=== PATIENT | female | born 1975 | race Two or more races ===

== ENCOUNTER 2022-12-09 13:44 | Outpatient (REF) | payer OTHER, SELFPAY ==
[2022-12-09 15:52] LABS: Erythrocyte Sedimentation Rate 17 MM/HR (0-20)
[2022-12-11 05:39] LABS: Lyme Abs Screen <0.90 index
[2022-12-12 08:53] LABS: Anti Nuclear Antibody Screen NEGATIVE (NEGATIVE)
[2022-12-13 14:59] LABS: DNAds, Crithidia Antibody Negative (Negative)
== END 2022-12-09 13:45 | disposition home or self-care (01) ==
LOC: HO.LAB 13:44
PROVIDERS: Visit Provider Psychiatry & Neurology Neurology
DX: R56.9 Unspecified convulsions (principal)
CPT/HCPCS: 36415; 85652; 86038; 86039; 86255; 86617; 86618

== ENCOUNTER 2023-01-07 10:33 | Outpatient (REF) | payer OTHER, SELFPAY ==
[2023-01-09 03:18] LABS: Lutenizing Hormone 2.8 mIU/mL; Prolactin 23.5 ng/mL
== END 2023-01-07 10:34 | disposition home or self-care (01) ==
LOC: HO.LAB 10:33
PROVIDERS: PCP Family Medicine; Visit Provider Psychiatry & Neurology Neurology
DX: D35.2 Benign neoplasm of pituitary gland (principal)
CPT/HCPCS: 36415; 83002; 84146; 84307

== ENCOUNTER 2024-05-05 15:21 | Outpatient (REF) | payer OTHER, SELFPAY ==
[2024-05-06 22:48] LABS: Prolactin 23.6 ng/mL
== END 2024-05-05 15:22 | disposition home or self-care (01) ==
LOC: HO.LAB 15:21
PROVIDERS: PCP Family Medicine; Visit Provider Psychiatry & Neurology Neurology
DX: D35.2 Benign neoplasm of pituitary gland (principal)
CPT/HCPCS: 36415; 84146

== ENCOUNTER 2025-05-29 15:29 | Outpatient (AMB) | payer OTHER, SELFPAY ==
--- NOTE | 2025-05-29 15:46 | MHC.OFFVIS ---
Intake Visit Reasons: 6 month f/u Allergies No Known Allergies Allergy (Verified 05/29/25 15:50) Medication List - Last Reconciled 05/29/25 by Radha Flores CNP buspirone 7.5 mg PO BID cholecalciferol (vitamin D3) (Vitamin D3) 50 mcg PO DAILY docusate sodium 100 mg PO BID ferrous sulfate 324 mg PO DAILY levetiracetam 500 mg PO BID oxcarbazepine 300 mg PO BID rosuvastatin 10 mg PO BEDTIME simethicone 80 mg PO Q6H PRN HPI Comments Details: 49-year-old woman with pitutary macroadenoma and epilepsy (generalized shaking, passing out, tongue bite). She was doing okay. No further episodes or spells. No medication side effects. No significant headaches. She was still working in [employer]. Stress was okay. Sleep was okay. [facility] Medical History (Updated 05/29/25 @ 15:49 by Radha Flores CNP) Epilepsy Seizure disorder Migraine Review of Systems Const Denies chills, Denies daytime sleepiness, Denies difficulty sleeping, Denies fatigue, Denies fever(s), Denies frequent falls, Denies headache(s), Denies increased appetite, Denies poor appetite, Denies snoring, Denies weakness, Denies weight gain and Denies weight loss Eyes Denies loss of vision ENT Denies vertigo, Denies dizziness and Denies headache(s) Card Denies chest pain at rest, Denies chest pain with activity, Denies syncope, Denies leg edema and Denies palpitations Resp Denies snoring GI Denies constipation, Denies heartburn, Denies diarrhea and Denies nausea Denies urinary frequency, Denies urinary incontinence and Denies urinary urgency Musc Denies abnormal gait, Denies numbness and Denies tingling Skin/Breast Denies dry skin and Denies rash Neuro Denies abnormal gait, Denies vertigo, Denies dizziness, Denies syncope, Denies frequent falls, Denies headache(s), Denies lack of coordination, Denies loss of vision, Denies memory loss, Denies numbness, Denies restless legs, Denies seizure-like activity, Denies tingling, Denies paresthesias, Denies tremor(s) and Denies weakness Psych Denies anxiety, Denies depression, Denies auditory hallucinations, Denies memory loss, Denies visual hallucinations and Denies suicidal ideation Endo Denies fatigue and Denies palpitations Physical Exam Const Other: General Appearance:? normal, in no acute distress. Skin:? no rashes, no significant birthmarks. Heart:? S1, S2 normal, no murmurs. Lungs:? clear anteriorly and posteriorly. Extremities:? no edema. Psych:? alert, oriented, cognitive function intact, cooperative with exam. Neuro Other: Mental Status:?Normal attention, orientation, memory and affect.? Cranial Nerves:?Pupils are equal, round and reactive to light. External occular muscles are intact. Visual ignacio are full. Face is symmetrical. Facial sensations are normal. Tongue is midline. Palate elevates symmetrically. Shoulder shrugging is normal. Hearing to bedside conversation is normal. Sensory Exam:?....? Coordination:?No ataxia,?no titubation.? Gait Exam: Within normal limits. Extrapyramidal System:?No tremor, rigidity with normal facial expressions.? Pronator Drift:?Not present.? Involuntary Movements:?No tremors seen.? Speech:?Normal.? Results Reviewed Results Reviewed: Laboratory Tests 05/05/24 15:45 Prolactin 23.6 EEG at [facility] in 2022: left carl sharp theta MRI brain WWO at [place] in 2022: 1.[address] brain WO at [facility] in Nov 2022: WNL EKG at [facility] in Nov 2022: NSR Assessment & Plan Assessment & Plan (1) Epilepsy: Code(s): G40.909 - Epilepsy, unspecified, not intractable, without status epilepticus Category: Medical Qualifiers: Epilepsy type: unspecified Intractability: not intractable Status epilepticus: without status epilepticus Qualified Code(s): G40.909 - Epilepsy, unspecified, not intractable, without status epilepticus Plan: Continue oxcarbazepine 300mg 1 tablet twice a day. Continue levetiracetam 500mg 1 tablet twice a day. (2) Migraine: Code(s): G43.909 - Migraine, unspecified, not intractable, without status migrainosus Category: Medical Qualifiers: Migraine type: unspecified Status migrainosus presence: without status migrainosus Intractability: not intractable Qualified Code(s): G43.909 - Migraine, unspecified, not intractable, without status migrainosus (3) Pituitary macroadenoma: Code(s): D35.2 - Benign neoplasm of pituitary gland Category: Medical Plan . Coding Level of Care Code Est Pt Level 4 (22371) Diagnoses Nonintractable epilepsy without status epilepticus, unspecified epilepsy type G40.909 Epilepsy type: unspecified Intractability: not intractable Status epilepticus: without status epilepticus Migraine without status migrainosus, not intractable, unspecified migraine type G43.909 Migraine type: unspecified Status migrainosus presence: without status migrainosus Intractability: not intractable Pituitary macroadenoma D35.2
--- OUTSIDE RECORDS SUMMARY | 2025-05-29 15:59 | XMS_ITS | Patient Health Record ---
Author Organization [facility] Address [address] [place] [address] Care Team Providers Care Vice President Quality Assurance Name Role Phone Paniagua Leobardojosh Primary Care Provider Unavailabl e Allergies No Known Allergies Reason For Referral No Information Medications Medication SIG (Take, Route, Frequency, Duration) Notes Start Date End Date Status Excedrin Migraine 250-250-65 MG 2 tablets Orally Once a day prn Active Diclofenac Sodium 1 % apply 1 gm to the right heel Externally Twice a day; Duration: 30 days 02/20/2022 Active Plan Of Treatment Pending Test Test Name Order Date X ray : Foot, right 3v 02/20/2022 Insurance Providers Payer Name Payer Address Payer Phone Subscriber Number Group Number Insured Name Patient Relationship to Insured Coverage Start Date Coverage End Date [facility] [address] [place] [phone] [id number] Deepti Conley Self - patient is the insured Medical (General) History Medical History History ICD Code 12/18/2020 + COVID 19 virus infection obesity (BMI 30.0-34.9) PSVT (paroxysmal supraventricular tachyc ardia) mild mitral regurgitation- echo 2000 amblyopia of left eye migraine headache iron deficiency anemia Surgical History Surgery Date(Month/Year) appendectomy 1991 tubal ligation Hospitalization History Reason Date(Month/Year) vaginal delivery (boy) 1995 vaginal delivery (boy) 1994 vaginal delivery (boy) 1991
--- OUTSIDE RECORDS SUMMARY | 2025-05-29 15:59 | XMS_ITS | Clinical Summary ---
Author Organization [address] Address [address] [place], [place] Phone Care Team Providers Care Specialties Operator Name Role Phone Maranda Reina MD Primary Care Pr ovider Allergies No known active allergies Medications levETIRAcetam (KEPPRA) 500 mg tablet Take 1 Tablet by mouth 2 times daily. Active OXcarbazepine (TRILEPTAL) 300 mg tablet Take 1 Tablet by mouth 2 times daily. Active aspirin-acetaminoph en-caffeine (EXCEDRIN MIGRAINE) 250-250-65 mg per tablet Take 1 tablet by mouth every 6 (six) hours if needed. Active cholecalciferol (VITAMIN D-3) 50 mcg (2,000 unit) tabletIndications:V itamin D deficiency Take 1 tablet (2,000 Units total) by mouth 1 (one) time each day. 90 tablet 1 5 06/03/20 25 Active busPIRone (BUSPAR) 7.5 mg tablet TAKE 1 TABLET BY MOUTH TWICE A DAY 180 tablet 1 5 Active ferrous sulfate 324 mg (65 mg elemental iron) EC tabletIndications:I leidy deficiency anemia, unspecified TAKE 1 TABLET BY MOUTH EVERY DAY 90 tablet 1 5 Active rosuvastatin (CRESTOR) 10 mg tabletIndications:M ixed hyperlipidemia Take 1 tablet (10 mg total) by mouth at bedtime. 90 each 1 5 10/08/20 25 Active docusate sodium (COLACE) 100 mg capsule TAKE 1 CAPSULE BY MOUTH 2 TIMES DAILY FOR 180 DAYS. 180 capsule 1 5 Active Active Problems Problem Noted Date Diagnosed Date S/P laparoscopic hysterectomy 11/14/2024 Migraine headache 09/12/2024 Assessment & Plan (12/05/2024 4:40 PM EST): Well-controlled. Continue Excedrin as needed Iron deficiency 09/12/2024 Assessment & Plan (12/05/2024 4:40 PM EST): Her iron levels/ferritin levels were low in July. Will update labs. For now, she will continue with the ferrous sulfate until labs are done. She no longer has anemia. 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 Continue BuSpar 7.5 mg twice daily. She will call her insurance to try to obtain a therapist Pituitary macroadenoma ([facility] V24, [facility] V28 ) 01/13/2023 Overview (09/12/2024): Last Assessment & Plan: I discussed this in detail with and Mrs. Conley and I believe this was an incidental finding. She is obviously concerned because of these new events but other than the seizures, she has had no constitutional changes and her endocrine lab panel is normal. She sees her post doctoral fellow regularly and denies any loss of visual ignacio. This cystic macroadenoma does not extend beyond the sella to contact the optic chiasm or deviate the stalk. As such, we will follow this with a repeat MRI sella protocol in 1 year. Assessment & Plan (02/17/2025 12:02 PM EDT): I reviewed the imaging findings in detail with Ms. Conley and agree with the report that pituitary gland is stable. It is hard to even call it an adenoma as this is mostly an empty sella with an area of compressed normal pituitary gland then a small area of decreased enhancement. There is stable mild extension to the left cavernous sinus and no extension beyond the sella itself. No constitutional findings and she will keep an eye on her hair loss. We will plan on her next surveillance study in 2 years unless she develops any worrisome symptoms. Assessment & Plan (12/05/2024 4:40 PM EST): Due for neurosurgery follow-up and is referred again today. See HPI. Orders: Ambulatory referral to Neurosurgery; Future Defers PCV 20 vaccine for now. Advised to obtain the shingles vaccine at her local pharmacy Hyperlipidemia 12/26/2022 Overview (09/12/2024): Calculated ASCVD risk 2.5% Assessment & Plan (12/05/2024 4:40 PM EST): Currently not on any medications. She will start exercising when she is cleared by [employer] and is advised to cut out cheese/fried foods/fast foods from her diet. Will update fasting lipids Orders: Lipid panel with reflex to direct LDL; Future Subclinical hypothyroidism 12/26/2022 Assessment & Plan (12/05/2024 4:40 PM EST): Resolved. Last TSH in July was normal Vitamin D deficiency 12/05/2022 Assessment & Plan (12/05/2024 4:40 PM EST): Continue vitamin D daily Orders: Vitamin D 25 hydroxy; Future cholecalciferol (VITAMIN D-3) 50 mcg (2,000 unit) tablet; Take 1 tablet (2,000 Units total) by mouth 1 (one) time each day. Seizure disorder (CMS/HCC V24, CMS/HCC V28) 11/13 Assessment & Plan (12/05/2024 4:40 PM EST): Well-controlled. Continue follow-up with Dr. Grey. Continue Keppra 500 mg twice daily and Trileptal 300 mg twice daily Obesity (BMI 30.0-34.9) 01/17/2020 Mitral regurgitation 05/19/2017 Overview (09/12/2024): Mild, echo 2000 Assessment & Plan (12/05/2024 4:40 PM EST): Last echocardiogram was done 11/17/2024 and is as above Which showed mild mitral insufficiency. Ejection fraction is normal. She has no symptoms related to this. PSVT (paroxysmal supraventri cular tachycardia) ([facility] V24) 05/19/2017 Overview (09/12/2024): 2000, echo 05/06/01, EF 65%, mild MR Amblyopia of left eye 10/21/2011 Resolved Problems Problem Noted Date Diagnosed Date Resolved Date Menorrhagia with irregular cycle 02/11/2023 10/28/2024 Overview (09/12/2024): Last Assessment & Plan: I explained that an ablation would be a reasonable option for her bleeding, but acutely, an until surgery can be scheduled, I recommend she try oral Aygestin to avoid ongoing heavy bleeding and worsening iron deficiency anemia. She was counseled re: expected bleeding profile following Novasure as well as risks an benefits of the procedure. Uterine fibroid 01/07/2023 10/28/2024 Iron deficiency anemia 01/08/200509/12 Overview (09/12/2024): Last Assessment & Plan: I recommened she continue oral iron and have repeat Hgb. Immunizations Name Administration Dates Next Due Influenza Quadrivalent, 0.5m l, preservative free (Fluarix; FluLaval; Fluzone) ages 6mo and older (Afluria) 3yo and older 08/22/2021 Influenza, Unspecified 07/31/2021 MMR, measles mumps and rubel la Live (Priorix; M-M-R II) 12mo and older 08/27/2010 Pfizer SARS-CoV-2 COVID-19, mRNA, LNP-S, preservative free 09/18/2021 Tdap Tetanus diptheria acell ular pertussis (Boostrix; Adacel) 7yo and older 10/15/2020,08/21/2010 Surgical History Surgery Date Site/Laterality Comments APPENDECTOMY 1991 PROCEDURE: HISTORICAL APPENDECTOMY TUBAL LIGATION PROCEDURE: HISTORICAL TUBAL LIGATION LAPAROSCOPIC HYSTERECTOMY 10/28/2023 THOR CARRILLO, cysto with Eppsteiner for menorrhagia, anemia, fibroids Medical History Medical History Date Comments Migraine headache DX:Migraine he adache Amblyopia of left eye 10/21/2011 DX:Amblyop ia of left eye PSVT (paroxysmal supraventri cular tachycardia) ([facility] V24) 05/19/2017 DX:PSVT (paroxysmal suprave ntricular tachycardia) ([facility]); COMMENT: 2000, echo 05/06/01, EF 65%, mild MR Iron deficiency anemia 01/08/2005 DX:Iron d eficiency anemia Mitral regurgitation 05/19/2017 DX:Mitral r egurgitation; COMMENT: Mild, echo 2000 COVID-19 virus infection 12/21/2020 DX:COVI D-19 virus infection; COMMENT: Positive results from swab 12/18/2020 Family History Medical History Relation Name Comments No Known Problems Daughter Cataracts Maternal Grandmother Glaucom a Depression Mother TIA No Known Problems Other Other: Fibromyalgia Sister Blindness Neg Hx Breast cancer Neg Hx Glaucoma Neg Hx Macular degeneration Neg Hx Strabismus Neg Hx Relation Name Status Comments Daughter Maternal Grandmother Mother Alive Other Sister Social History Tobacco Use Types Packs/Day Years Used Date Smoking Tobacco: Never Smokeless Tobacco: Never Tobacco Cessation:Counseling Given: Not Answered Alcohol Use Standard Drinks/Week Comments Not Currently 0 (1 standard drink = 0.6 oz pur e alcohol) Housing Instability Answer Date Recorde d Are you worried that in the next 2 months you may not have stable housing? Patient declined 11/29/2024 Food Access & Nutrition Answer Date Rec orded Do you have access to a vari ety of food including fruits and vegetables? Patient declined 11/29/2024 Access to Healthcare Answer Date Record ed Within the last 3 months, jade lala many times did you visit the emergency department for your medical care? 0 11/29/2024 Health Literacy Answer Date Recorded How often do you need to hav e someone help you when you read instructions, pamphlets, or other written material from your doctor or pharmacy? Patient declined 11/29/2024 Caregiver: How often do you need to have someone help you when you read instructions, pamphlets, or other written material from your doctor or pharmacy? Not on file 025 Financial Risk Answer Date Recorded How hard is it for you to pa y for the very basics like food, housing, medical care, and air conditioning / heating? Patient declined 11/29/2024 Transportation Answer Date Recorded Has the lack of transportati on kept you from meetings, work, or from getting things needed for daily living? Patient declined 11/29/2024 Has the lack of transportati on kept you from medical appointments or from getting medications? Patient declined 11/29/2024 Social Isolation Answer Date Recorded How often do you feel lonely or isolated from those around you? Patient declined 11/29/2024 Food Risk Answer Date Recorded Within the past 12 months we worried whether our food would run out before we got money to buy more. Patient declined 025 Within the past 12 months th e food we bought just didn't last and we didn't have money to get more. Patient declined 11/12 Dependent Care Answer Date Recorded Do you need help finding or paying for care for your loved ones. For example, childhood development teacher or elderly care for an older adult? Patient declined 11/29/2024 Education Answer Date Recorded Do you think completing more education or training, like finishing a GED, going to college, or learning a trade, would be helpful for you? Patient declined 11/29/2024 Employment and Income Answer Date Recor ded During the last four weeks, have you been actively looking for work? Patient declined 11/29/2024 Living Situation Answer Date Recorded What is your living situation? 0 11/29/2024 Interpersonal Safety Answer Date Record ed Physical Abuse 10/28/2024 Verbal Abuse 10/28/2024 Comments No Sex and Gender Information Value Date Recorded Sex Assigned at Female 10/27/2024 8:08 AM EST Legal Sex Female 10:47 PM EST Gender Identity Female 10/27/2024 8:08 AM EST Sexual Orientation Straight 10/27/2024 8: 08 AM EST Obstetrics History Para Term AB IAB SAB Ectopic Multiple Livin g Live Births 5 3 3 2 2 3 3 Date Outcome GA Total Labor Labor/2nd/3rd Weight Sex Type Anes PTL Mulu A1 A5 Name Clin Term Living Term Living Term Living SAB SAB Last Filed Vital Signs Vital Sign Reading Time Taken Comments Blood Pressure 118/76 12/12/2024 9:52 AM EST Pulse 74 12/12/2024 9:52 AM EST Temperature 36.7 C (98 F) 12/05/2024 3:56 PM EST Respiratory Rate 16 12/12/2024 9:52 AM EST Oxygen Saturation 94% 10/28/2024 10:46 AM EST Inhaled Oxygen Concentration - - Weight 87.4 kg (192 lb 9.6 oz) 12/12/2024 9:52 A M EST Height 162.6 cm (5' 4 ) 12/12/2024 9:52 AM EST Body Mass Index 33.06 12/12/2024 9:52 AM EST Plan of Treatment Upcoming Encounters Date Type Department Care Team (Late st Contact Info) Description 08/31/2025 3:00 PM EST Office Visit Adult Medicine [facility] [address] [place] [phone] Maranda Reina MD [address] [place] [phone] Health Maintenance Due Date Last Done Comments HIV Screening 09/20/2022 Pneumococcal Vaccine: 50+ Years (1 of 1 - PCV) 2023 Zoster Vaccines (1 of 2) 2023 Social Influencers of Health Screening 11/29/2025 11/29/2024 Breast Cancer Screening 08/25/2026 08/25/20 24, 08/14/2023, 08/07/2022, Additional history exists Cervical Cancer Screening: HPV 01/15/2028 01/14/2023 Cholesterol Screening (Lipid Panel) 02/07/2030 02/07/2025, 12/20/2024, 12/12/2024, Additional history exists DTaP,Tdap,and Td Vaccines (3 - Td or Tdap) 10/15/2030 10/15/2020, 08/21/2010 Colorectal Cancer Screening: Colonoscopy 02/28/2032 02/27/2022 MMR Vaccines Aged Out 08/27/2010 No longer eligi ble based on patient's age to complete this topic Influenza Vaccine Discontinued 08/22/2021, 07/31/2021 COVID-19 Vaccine Discontinued 10/31/2021, 05/2021, 02/18/2021, Additional history exists Hepatitis C Screening Completed 01/11/2024 Depression Screening Completed 11/29/2024 HIB Vaccines Aged Out No longer eligi ble based on patient's age to complete this topic HPV Vaccines Aged Out No longer eligi ble based on patient's age to complete this topic Hepatitis A Vaccines Aged Out No long er eligible based on patient's age to complete this topic Hepatitis B Vaccines Discontinued IPV Vaccines Aged Out No longer eligi ble based on patient's age to complete this topic Meningococcal ACWY Vaccine Aged Out N o longer eligible based on patient's age to complete this topic Meningococcal B Vaccine Aged Out No l onger eligible based on patient's age to complete this topic RSV Immunization Patients Under 20 months Aged Out No longer eligible based on patient's age to complete this topic Varicella Vaccines Aged Out No longer eligible based on patient's age to complete this topic Procedures Procedure Name Priority Date/Time Associated Diagnosis Comments LIPID PANEL WITH REFLEX TO DIRECT LDL Routine 02/07/2025 2:19 PM EDT Mixed hyperlipidemia MG MAMMO DIGITAL SCREENING W DAMIÁN BILAT Routine 08/25/2024 9:37 AM EST Encounter for screening mammogram for malignant neoplasm of breast HEPATITIS C SCREENING Routine 01/11/2024 HPV Routine 01/14/2023 COLONOSCOPY Routine 02/27/2022 from Last 3 Months or Most Recently Relevant to Health Maintenance Results * (ABNORMAL) Lipid panel with reflex to direct LDL (02/07/2025 2:19 PM EDT) Cholesterol 180 0 - 200 mg/dL LAB CHEMISTRY METHOD 02/07/2025 5:55 PM EDT [facility] Triglycerides 188(H) 0 - 150 mg/dL LAB CHEMISTRY METHOD 02/07/2025 5:55 PM EDT [facility] HDL 64 >=40 mg/dL LAB CHEMISTRY METHOD 02/07/2025 5:55 PM EDT [facility] LDL Calculated 78 0 - 100 mg/dL LAB CHEMISTRY METHOD 02/07/2025 5:55 PM EDT [facility] VLDL Cholesterol Brenden 37.6 mg/dL LAB CHEMISTRY METHOD 02/07/2025 5:55 PM EDT [facility] Non HDL Chol. (LDL+VLDL) 116 <145 mg/dL LAB CHEMISTRY METHOD 02/07/2025 5:55 PM EDT [facility] Chol/HDL Ratio 2.8 0.0 - 4.4 LAB CHEMISTRY METHOD 02/07/2025 5:55 PM EDT [facility] Blood Venous blood specimen / Unknown Venipuncture / Unknown 02/07/2025 2:19 PM EDT 02/07/2025 2:19 PM EDT Maranda Reina MD LAB BLOOD ORDERA BLES Final Result [facility] [address] [place] [address], [place] [phone] * MG Mammo Digital Screening w Damián bilat (08/25/2024 9:37 AM EST) Anatomical Region Laterality Modality Breast Bilateral Mammography 08/25/2024 5:12 PM EST Impressions 08/25/2024 5:12 PM EST No mammographic evidence of malignancy. BREAST DENSITY: B - There are scattered areas of fibroglandular density. BI-RADS CATEGORY: 1 - NEGATIVE RECOMMENDATION: Screening bilateral mammogram is recommended in 1 year. MAMMO LOCATION: [facility], [address] [place] [address], [id number], . -------- FINAL REPORT -------- Dictated By: Christi Kurtz Dictated Date: 08/25/2024 17:12 ET Assigned Physician: Christi Kurtz Reviewed and Electronically Signed By: Christi Kurtz Signed Date: 08/25/2024 17:12 ET Workstation ID: [id number] Transcribed By: Self Edit Transcribed Date: 08/25/2024 17:12 ET Narrative 08/25/2024 5:12 PM EST EXAM: Screening Mammogram CLINICAL: 49 years old, Female, routine annual exam. COMPARISON: 08/14/2023 and as far back as 09/01/2019 TECHNIQUE: Bilateral MLO and CC views were obtained digitally with 3-D mammogram (digital breast tomosynthesis). Computer-aided detection was utilized in evaluation of this exam (CAD). FINDINGS: No new suspicious mass, architectural distortion, or suspicious calcifications. Procedure Note Christi Kurtz MD - 08/25/2024 EXAM: Screening Mammogram CLINICAL: 49 years old, Female, routine annual exam. COMPARISON: 08/14/2023 and as far back as 09/01/2019 TECHNIQUE: Bilateral MLO and CC views were obtained digitally with 3-Dmammogram (digital breast tomosynthesis). Computer-aided detection wasutilized in evaluation of this exam (CAD). FINDINGS: No new suspicious mass, architectural distortion, or suspiciouscalcifications. IMPRESSION: No mammographic evidence of malignancy. BREAST DENSITY: B - There are scattered areas of fibroglandular density. BI-RADS CATEGORY: 1 - NEGATIVE RECOMMENDATION: Screening bilateral mammogram is recommended in 1 year. MAMMO LOCATION: [facility], [address] [place] [address], [facility], . -------- FINAL REPORT -------- Dictated By: Christi Kurtz Dictated Date: 08/25/2024 17:12 ET Assigned Physician: Christi Kurtz Reviewed and Electronically Signed By: Christi Kurtz Signed Date: 08/25/2024 17:12 ET Workstation ID: [id number] Transcribed By: Self Edit Transcribed Date: 08/25/2024 17:12 ET Maranda Reina MD IM BI PROCEDURE S Final Result * Hm Hepatitis C Screening (01/11/2024) [facility] Hepatitis C Screening abstracted [facility] Provider HEALTH MAINTENANCE Final Result * Cervical Cancer Screening: HPV (01/14/2023) [facility] Cervical Cancer Screening: HPV no interpretation , abstracted [facility] Provider HEALTH MAINTENANCE Final Result * Colonoscopy (02/27/2022) [facility] Colonoscopy no interpretation , abstracted Anatomical Region Laterality Modality Other Historical Provider HEALTH MAINTENANCE Final Result from Last 3 Months or Most Recently Relevant to Health Maintenance Insurance [facility] Advance Directives * Full Code - Default (Latest Code Status on File) Date Activated Date Inactivated Comments 10/28/2024 6:02 AM 10/28/2024 3:09 PM This is orde r is used when code status has not been discussed with the patient, or code status is otherwise unknown/unconfirmed To update the patient's code status, place a code status order. Do not modify or discontinue any currently active code status orders. Care Teams Specialties Operator Relationship Specialty Start Date End Date Maranda Reina MD [address] [place], [place] PCP - General Internal Medicine 07/15/22
== END 2025-05-29 15:57 | disposition home or self-care (01) ==
LOC: HO.HSM 15:30
PROVIDERS: PCP Family Medicine; Referring Provider Family Medicine; Visit Provider Registered Nurse
DX: G40.909 Epilepsy, unspecified, not intractable, without status epilepticus (principal); G43.909 Migraine, unspecified, not intractable, without status migrainosus; D35.2 Benign neoplasm of pituitary gland
CPT/HCPCS: 99214